=== PATIENT | male | born 1950 | race Caucasian/White ===

== ENCOUNTER 2017-05-31 16:12 | Inpatient (IN) ==
[2017-05-31] MEDS ORDERED: *HR* Heparin 5,000 UNIT/ML VIAL IVP PRN (16:34)
[2017-05-31] MEDS ORDERED: *HR* Heparin 5,000 UNIT/ML VIAL IVP ONE (16:34)
[2017-05-31 16:56] LABS: Basophils % 0.5 %; Eosinophils # 0.1 K/mcL (0.0-0.6); Eosinophils % 1.7 %; Hematocrit 46.5 % (37.5-50.1); Hemoglobin 15.3 g/dL (12.9-16.9); Immature Granulocytes % 0.4 % (0-4); Lymphocytes # 2.9 K/mcL (0.6-4.6); Lymphocytes % 35.2 %; Mean Corpuscular HGB Conc 32.9 g/dL (31.6-35.5); Mean Corpuscular Hemoglobin 29.9 pg (28.0-33.3); Mean Corpuscular Volume 90.8 fL (83.0-100.0); Mean Platelet Volume 9.4 fL (9.4-12.4); Monocytes # 0.6 K/mcL (0.0-1.3); Monocytes % 7.3 %; Neutrophils # 4.5 K/mcL (1.6-8.9); Platelet Count 243 K/mcL (140-400); Red Blood Count 5.12 M/mcL (4.19-5.50); Red Cell Distribution Width 13.6 % (11.5-14.5); Segmented Neutrophils % 54.9 %
--- NOTE | 2017-05-31 16:58 | Emergency Department Note ---
Disposition Clinical Impression: Pulmonary embolism Disposition: Admitted As Inpatient Condition: Good Referrals: Heather Kay MD [Primary Care Provider] - Forms: ED Satisfaction Letter Time of Disposition: 19:28 [facility]B [facility] - General Chief Complaint: ED Shortness of Breath/Dyspnea Stated Complaint: PE Time Seen by Provider: 05/31/17 16:19 Source: patient Mode of arrival: ambulatory Limitations: no limitations Nursing Notes Reviewed: Yes Vital Signs Reviewed: Yes - History of Present Illness Patient presenting from outpatient CAT scan for bilateral PE. 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 He said exertional dyspnea and shortness of breath at rest for the last 2 weeks. It is progressively worsening. Had an outpatient CT scan today that showed a large PE. Patient sent over for further evaluation and management. No fever or chills, chest pain , abdominal pain, vomiting or diarrhea. - Related Data Home Medications Medication Instructions Recorded Confirmed Azithromycin [Azithromycin] 05/31/17 Gabapentin [Neurontin] 600 mg PO BID 05/31/17 05/31/17 predniSONE [PredniSONE] 05/31/17 Allergies Allergy/AdvReac Type Severity Reaction Status Date / Time No Known Allergies Allergy Verified 05/31/17 18:40 Review of Systems: As reviewed in the HPI. All other systems reviewed are negative or normal. Past Medical History - Past Medical History Attestation: Yes The following information was validated with the patient. Source: patient Medical history: Reports: no medical history Psychiatric history: Reports: no psych history - Social History Smoking Status: Never smoker Smokeless Tobacco Status: No Alcohol use: Reports: none Drug use: Reports: none Physical Exam - General Limitations: no limitations General appearance: alert, in no apparent distress - Head Head exam: atraumatic, normocephalic, normal inspection - Eye Eye exam: Present: normal appearance, PERRL, EOMI - ENT ENT exam: normal exam, normal oropharynx, mucous membranes moist - Neck Neck exam: Present: normal inspection, full ROM, trachea midline - Chest Chest inspection: Present: normal inspection, symmetric chest wall rise - Respiratory Respiratory exam: Present: normal lung sounds bilaterally - Cardiovascular Cardiovascular exam: Present: regular rate, normal rhythm, normal heart sounds - Abdominal Exam Abdominal exam: Present: soft, Non-Tender. Absent: tenderness, distention, guarding, rebound, rigidity - Extremities Exam Extremities exam: Present: normal inspection, full ROM. Absent: tenderness, pedal edema - Back Exam Back exam: Present: normal inspection, full ROM. Absent: tenderness - Neurological Exam Neurological exam: Present: alert, oriented X3 - Psychiatric Psychiatric exam: Present: normal affect, normal mood - Skin Skin exam: Present: warm, dry, intact, normal color Course Course Narrative: Patient presenting with a PE. Was diagnosed as an outpatient. We will start on heparin. Patient stable currently - Consultations Consultation #1: The hospitalist just now called back. Patient accepted for admission. Time: 19:28 Vital Signs Temperature 96.9 F L 05/31/17 16:24 Pulse Rate 60 05/31/17 16:24 Respiratory Rate 16 05/31/17 16:24 Blood Pressure 140/89 05/31/17 16:24 O2 Sat by Pulse Oximetry 96 05/31/17 16:24 Temperature 96.9 F L 05/31/17 16:24 Pulse Rate 60 05/31/17 16:24 Respiratory Rate 16 05/31/17 18:27 Blood Pressure 124/90 05/31/17 18:27 O2 Sat by Pulse Oximetry 96 05/31/17 18:27 Oxygen Delivery Oxygen Delivery Room Air Shortness of Breath/Dyspnea - Medical Records Medical records reviewed: Yes I reviewed the patient's medical records. - Lab Data Lab results reviewed: Yes I reviewed the patient's lab results. Result diagrams: 05/31/17 16:29 05/31/17 16:29 Lab Results 05/31/17 05/31/17 05/31/17 Range/Units 16:29 16:29 16:29 WBC 8.3 (4.3-11.1) K/mcL RBC 5.12 (4.19-5.50) M/mcL Hgb 15.3 (12.9-16.9) g/dL Hct 46.5 (37.5-50.1) % MCV 90.8 (83.0-100.0) fL MCH 29.9 (28.0-33.3) pg MCHC 32.9 (31.6-35.5) g/dL RDW 13.6 (11.5-14.5) % Plt Count 243 (140-400) K/mcL MPV 9.4 (9.4-12.4) fL Immature Gran % 0.4 (0-4) % Seg Neutrophils % 54.9 % Lymphocytes % 35.2 % Monocytes % 7.3 % Eosinophils % 1.7 % Basophils % 0.5 % Neutrophils # 4.5 (1.6-8.9) K/mcL Lymphocytes # 2.9 (0.6-4.6) K/mcL Monocytes # 0.6 (0.0-1.3) K/mcL Eosinophils # 0.1 (0.0-0.6) K/mcL Basophils # 0.0 (0.0-0.2) K/mcL PT 12.3 H (9.4-12.1) Seconds INR 1.1 APTT 29.9 (26.0-36.0) Seconds Sodium 140 (136-145) mEq/L Potassium 4.0 (3.5-5.1) mEq/L Chloride 107 (98-107) mEq/L Carbon Dioxide 24 (23-29) mEq/L BUN 14 (8-23) mg/dL Creatinine 1.11 (0.70-1.30) mg/dL Est GFR ( Amer) > 60 (> 60) Est GFR (Non-Af Amer) > 60 (> 60) BUN/Creatinine Ratio 13 (6-26) Glucose 94 (70-105) mg/dL Calculated Osmolality 290 (280-300) Calcium 9.3 (8.6-10.3) mg/dL Troponin I < 0.03 (< 0.04) ng/mL B-Natriuretic Peptide (Less than 100) pg/mL 05/31/17 Range/Units 16:50 WBC (4.3-11.1) K/mcL RBC (4.19-5.50) M/mcL Hgb (12.9-16.9) g/dL Hct (37.5-50.1) % MCV (83.0-100.0) fL MCH (28.0-33.3) pg MCHC (31.6-35.5) g/dL RDW (11.5-14.5) % Plt Count (140-400) K/mcL MPV (9.4-12.4) fL Immature Gran % (0-4) % Seg Neutrophils % % Lymphocytes % % Monocytes % % Eosinophils % % Basophils % % Neutrophils # (1.6-8.9) K/mcL Lymphocytes # (0.6-4.6) K/mcL Monocytes # (0.0-1.3) K/mcL Eosinophils # (0.0-0.6) K/mcL Basophils # (0.0-0.2) K/mcL PT (9.4-12.1) Seconds INR APTT (26.0-36.0) Seconds Sodium (136-145) mEq/L Potassium (3.5-5.1) mEq/L Chloride (98-107) mEq/L Carbon Dioxide (23-29) mEq/L BUN (8-23) mg/dL Creatinine (0.70-1.30) mg/dL Est GFR ( Amer) (> 60) Est GFR (Non-Af Amer) (> 60) BUN/Creatinine Ratio (6-26) Glucose (70-105) mg/dL Calculated Osmolality (280-300) Calcium (8.6-10.3) mg/dL Troponin I (< 0.04) ng/mL B-Natriuretic Peptide 141 H (Less than 100) pg/mL - Radiology Data Radiology results reviewed: Yes I reviewed the patient's radiology results. - EKG Data EKG attestation: Yes I reviewed and interpreted this EKG. EKG results narrative: Rate 61, WI interval 175, QRS 94, QTC 439, indeterminate axis, no acute ischemic changes
[2017-05-31 16:59] LABS: INR 1.1; Prothrombin Time 12.3 Seconds (9.4-12.1)
[2017-05-31] MEDS: Heparin 25,000 UNIT/500 ML D5W 25,000 UNIT/500 ML BAG IVC SCH (17:00)
[2017-05-31 17:02] LABS: Activated Partial Thrombo Time 29.9 Seconds (26.0-36.0)
[2017-05-31 17:15] LABS: BUN/Creatinine Ratio 13 (6-26); Blood Urea Nitrogen 14 mg/dL (8-23); Calcium 9.3 mg/dL (8.6-10.3); Carbon Dioxide 24 mEq/L (23-29); Chloride 107 mEq/L (98-107); Glucose 94 mg/dL (70-105); Osmolality,Calculated 290 (280-300); Sodium 140 mEq/L (136-145); Troponin I < 0.03 ng/mL (< 0.04); eGFR For African Americans > 60 (> 60); eGFR For Non-African Americans > 60 (> 60)
--- NOTE | 2017-05-31 17:21 | Emergency Department Note ---
START Narrative - START START: I examined this patient and my medical decision-making was reviewed with the Resident Physician. I agree with the documented findings, disposition and treatment plan as described except to the extent set forth below. Extent 6-year-old male sent from the CAT scan department for extensive pulmonary embolus seen throughout both lung guevara. Patient had a CT scan of the chest done due to increasing dyspnea on exertion as well as a cough and shortness of breath. He does have a history of DVT years and years ago. He denies chest pain. No fevers. No long travels in a car plane. He does not take any blood thinners at this time. Patient will be started on heparin in the emergency room and will be admitted to the hospital. He is hemodynamically stable at this time. He is not tachycardic or hypoxic.
[2017-05-31] MEDS ORDERED: *HR* LORazepam 2 MG/ML VIAL IVP ONE (17:29)
[2017-05-31] MEDS ORDERED: Melatonin 3 MG TABLET PO ONE (22:34)
[2017-05-31] MEDS ORDERED: *HR* HYDROcodone/Acet 5/325 mg TABLET PO PRN (23:01)
[2017-05-31] MEDS ORDERED: Naloxone 0.4 MG/ML INJ IVP PRN (23:01)
[2017-05-31] MEDS ORDERED: Acetaminophen 325 MG TABLET PO PRN (23:01)
--- NOTE | 2017-05-31 23:26 | Internal Med History&Physical ---
<Zuleyka Jung H - Last Filed: 06/01/17 00:51> Date of Encounter: 06/01/17 Time of Encounter: 23:19 Internal Medicine - H&P: HPI Chief complaint: shortness of breath, cough Admitted From: Emergency Dept Plans for Post Hospital Care: Home History of present illness: Mr. Germain is a 66 year old male with past medical history of ANNABELLE, panic disorder, history of DVT and superficial venous thrombosis of the lower extremity, and reported past intracranial hemangioma currently being managed by Dr. Baum in [place]. Mr. Germain presented to [facility] on 05/31/2017 after reporting to an outpatient CTA and being found to have multiple pulmonary emboli within his bilateral lungs. Patient reports a two-week history of shortness of breath worsened by exertion with associated cough during inhalation and fatigue. He denies any chest pain, palpitations, diaphoresis, nausea, or vomiting. He denies any recent diarrhea, melena, hematochezia. He denies any dizziness, lightheadedness, or headaches. He denies orthopnea or lower extremity swelling. Patient does report some mild abdominal pain which he describes as sharp pains around his umbilicus. He did have umbilical hernia surgery repair last March 2016. He attributes his abdominal pain to increased intake of glazed doughnuts. Patient also reports that his right calf is bigger than his left calf and has been so for a year. He denies any edema or erythema or warmth to the area. He denies any history of recent travel or long flights. Patient denies any underlying malignancy. Patient does report a history of a DVT approximately 20 years ago. In 2017, patient had a superficial venous thrombosis in his lower extremity. He denies any history of anticoagulation. Patient does state that he was diagnosed with a hemangioma in his brain in 2012 by MRI by a neurologist in [place]. During that time he was experiencing episodes of increased intracranial pressure. He states his symptoms have since resolved. He reports taking gabapentin secondary to the increased intracranial pressure. He denies any history of seizures or intracranial bleeding. Patient denies any cardiac history. He denies any family history of DVTs or hypercoagulopathy. He does report that both parents are secondary to malignancy. Past Med Surg Social Fam HX - Past Medical History Attestation: Yes The following information was validated with the patient. Source: patient, old records reviewed Medical history: DVT, other (Obstructive sleep apnea) Psychiatric history: panic disorder - Past Surgical History Surgical History: herniorrhaphy (Umbilical hernia), other (Lower extremity vein stripping) - Social History Smoking Status: Never smoker Smokeless Tobacco Status: No Alcohol use: none Drug use: none Occupational status: retired - Family History Father History Unknown: Yes Living Status: Hx Family Cardiac Disorders: Yes (CHF, HI) Hx Family Respiratory Disorders: Yes (PE) Hx Family Cancer: Yes (Pancreatic cancer) Mother Living Status: Hx Family Cardiac Disorders: Yes (HI) Hx Family Cancer: Yes (Colon cancer) Internal Medicine - H&P: Meds Azithromycin [Azithromycin] 250 mg PO PER PKG DI 05/31/17 [History] Gabapentin [Neurontin] 600 mg PO BID 05/31/17 [History] predniSONE [PredniSONE] See Taper PO TAPER 05/31/17 [History] 3 Allergy/AdvReac Type Severity Reaction Status Date / Time No Known Allergies Allergy Verified 05/31/17 18:40 All Systems PM: A 10-system review of systems was performed and is negative for pertinent findings except as documented above in the HPI. - Constitutional Constitutional: fatigue, no anorexia, no chills, no fever(s), no weakness, no weight gain, no weight loss - EENT Eyes: no change in vision, no other visual disturbances Nose, mouth and throat: no nasal congestion, no nasal discharge, no sinus pain, no sinus pressure - Cardiovascular Cardiovascular ROS IM: dyspnea, dyspnea on exertion, no chest pain, no claudication, no diaphoresis, no edema, no irregular heart rhythm, no lightheadedness, no orthopnea, no palpitations, no paroxysmal nocturnal dyspnea , no syncope - Respiratory Respiratory: cough, dyspnea, dyspnea on exertion, pain on inspiration, no hemoptysis, no chest congestion, no excessive phlegm production - Gastrointestinal Gastrointestinal: abdominal pain, no change in stool character, no coffee ground emesis, no constipation, no diarrhea, no heartburn, no hematemesis, no loose stools, no melena, no nausea, no vomiting - Genitourinary Genitourinary ROS male: no difficulty urinating, no dysuria, no hematuria, no urinary frequency, no urinary hesitancy - Musculoskeletal Musculoskeletal ROS IM: no back pain, no joint swelling, no numbness - Integumentary Integumentary IM: no erythema, no rash, no jaundice - Neurological Neurological ROS: no abnormal gait, no abnormal hearing, no focal weakness, no numbness - Endocrine Endocrine IM: no cold intolerance, no heat intolerance - Hematologic/Lymphatic Hematologic/Lymphatic: no easy bleeding, no easy bruising - Constitutional Vitals: Temp Pulse Resp BP Pulse Ox 98.0 F 59 16 135/88 97 05/31/17 21:59 05/31/17 21:59 05/31/17 21:59 05/31/17 21:59 05/31/17 21:59 General appearance: Present: cooperative, A&O X 3, pleasant, no acute distress, answers questions appropriately - Head Head exam: Present: atraumatic, normocephalic - Eye Eye exam: Present: conjuntiva pink, sclera anicteric - Neck Neck exam general surgery: Present: supple, trachea midline. Absent: lymphadenopathy - Respiratory Respiratory exam: Present: CTAB. Absent: accessory muscle use, rales, rhonchi, wheezes - Cardiovascular Cardiovascular exam: Present: RRR, +S1, +S2. Absent: diastolic murmur, gallop, rubs, systolic murmur - GI/Abdominal GI/Abdominal exam: Present: normal bowel sounds, soft, no peritoneal signs. Absent: distended, firm, guarding, tenderness - Extremities Exam Extremities exam: Present: warm, radial pulses palpable and symmetrical. Absent : calf tenderness, cyanotic, pedal edema - Neurological Exam Neurological exam: Present: CN II-XII intact, oriented X3, no focal deficits. Absent: pronater drift, facial droop, speech deficit - Psychiatric Psychiatric exam: Present: normal affect, normal mood - Skin Skin exam: Present: dry, intact, warm Internal Med - H&P Results - Labs CBC & Chem 7: 05/31/17 16:29 05/31/17 16:29 - Assessment and plan (1) Pulmonary embolism Current Visit: Yes Status: Acute Assessment and plan: 66-year-old male with past medical history of recurrent thrombotic events presents with acute extensive pulmonary emboli involving the central, segmental , and subsegmental branches of the pulmonary tree bilaterally. No evidence for right heart strain on CT scan although main pulmonary artery is dilated. -Patient hemodynamically stable and resting comfortably. -We will continue heparin drip. -Consult to heme/onc for long-term anticoagulation recommendations as well as hypercoagulopathy workup. -We will order hypercoagulopathy panel. -We will get an echocardiogram in the a.m. as BNP is elevated to rule out right ventricular strain. -We will get bilateral lower extremity Dopplers. Qualifiers: Pulmonary embolism type: other Chronicity: acute Acute cor pulmonale presence: without acute cor pulmonale Qualified Code(s): I26.99 - Other pulmonary embolism without acute cor pulmonale (2) Hemangioma Current Visit: Yes Status: Acute Assessment and plan: Patient does have reported history of an intracranial hemangioma as evidenced by MRI after complaints of increased intracranial pressure in approximately 2012. Explained to patient that this could be a potential contraindication for anticoagulation. Patient states he understands the risks and understands that the benefits for anticoagulation with heparin for his acute PEs outweigh the risks. (3) Abdominal pain Current Visit: Yes Status: Acute Assessment and plan: Patient reports a 2 week history of periumbilical sharp, mild umbilical pain. -Likely related to umbilical hernia surgery repair a year ago. -We will continue to monitor. Qualifiers: Abdominal location: periumbilical Qualified Code(s): R10.33 - Periumbilical pain (4) DVT prophylaxis Current Visit: Yes Status: Acute Assessment and plan: Patient on heparin drip. - Time Spent With Patient Total time spent is greater than 50% in coordination of care (as documented) at patient's floor/unit and/or counseling patient: <Karla Stanton - Last Filed: 06/01/17 06:03> Date of Encounter: 06/01/17 Internal Medicine - H&P: HPI History of present illness: Mr. Germain is a 66 year old male All Systems PM: A 10-system review of systems was performed and is negative for pertinent findings except as documented above in the HPI. - Constitutional Vitals: Temp Pulse Resp BP Pulse Ox 97.5 F L 50 16 117/73 94 06/01/17 05:37 06/01/17 05:37 06/01/17 05:37 06/01/17 05:37 06/01/17 05:37 Internal Med - H&P Results - Labs CBC & Chem 7: 05/31/17 16:29 04/25/18 16:29 Labs: Cardiac Enzymes 06/01/17 Range/Units 00:13 Troponin I < 0.03 (< 0.04) ng/mL - Attending Attestation I have seen and examined this patient independently. I have discussed with resident physician Dr. Wilson regarding the management plan. Agree with the documentation. - Assessment and plan (1) Pulmonary embolism Current Visit: Yes Status: Acute Qualifiers: Pulmonary embolism type: other Chronicity: acute Acute cor pulmonale presence: without acute cor pulmonale Qualified Code(s): I26.99 - Other pulmonary embolism without acute cor pulmonale (2) Hemangioma Current Visit: Yes Status: Acute (3) Abdominal pain Current Visit: Yes Status: Acute Qualifiers: Abdominal location: periumbilical Qualified Code(s): R10.33 - Periumbilical pain (4) DVT prophylaxis Current Visit: Yes Status: Acute - Time Spent With Patient Total time spent is greater than 50% in coordination of care (as documented) at patient's floor/unit and/or counseling patient:
[2017-05-31] MEDS: Gabapentin 300 MG CAPSULE PO SCH (23:54)
[2017-06-01 00:50] LABS: Heparin anti-factor XA UFH 0.56 IU/mL (0.30-0.70)
[2017-06-01 06:11] LABS: Basophils % 0.6 %; Eosinophils # 0.2 K/mcL (0.0-0.6); Eosinophils % 3.1 %; Hematocrit 41.7 % (37.5-50.1); Immature Granulocytes % 0.3 % (0-4); Lymphocytes # 3.1 K/mcL (0.6-4.6); Lymphocytes % 45.6 %; Mean Corpuscular HGB Conc 33.6 g/dL (31.6-35.5); Mean Corpuscular Hemoglobin 30.3 pg (28.0-33.3); Mean Corpuscular Volume 90.3 fL (83.0-100.0); Mean Platelet Volume 9.2 fL (9.4-12.4); Monocytes # 0.6 K/mcL (0.0-1.3); Monocytes % 8.9 %; Neutrophils # 2.9 K/mcL (1.6-8.9); Platelet Count 204 K/mcL (140-400); Red Blood Count 4.62 M/mcL (4.19-5.50); Red Cell Distribution Width 13.7 % (11.5-14.5); Segmented Neutrophils % 41.5 %
[2017-06-01 06:33] LABS: Alanine Aminotransferase 15 Units/L (7-52); Albumin 3.6 g/dL (3.5-5.7); Albumin/Globulin Ratio 1.5 (1.1-2.2); Alkaline Phosphatase 96 Units/L (34-104); Aspartate Amino Transferase 16 Units/L (13-39); BUN/Creatinine Ratio 14 (6-26); Bilirubin,Total 0.7 mg/dL (0.3-1.0); Blood Urea Nitrogen 14 mg/dL (8-23); Calcium 8.9 mg/dL (8.6-10.3); Carbon Dioxide 24 mEq/L (23-29); Chloride 109 mEq/L (98-107); Globulin 2.4 g/dL (2.4-3.5); Glucose 98 mg/dL (70-105); Magnesium 2.1 mg/dL (1.6-2.6); Osmolality,Calculated 290 (280-300); Phosphorous 4.4 mg/dL (2.7-4.5); Potassium 3.9 mEq/L (3.5-5.1); Sodium 140 mEq/L (136-145); eGFR For African Americans > 60 (> 60); eGFR For Non-African Americans > 60 (> 60)
[2017-06-01] MEDS: Gabapentin 300 MG CAPSULE PO SCH ×2 (09:55→21:37)
[2017-06-01] MEDS: Heparin 25,000 UNIT/500 ML D5W 25,000 UNIT/500 ML BAG IVC SCH (10:06)
--- NOTE | 2017-06-01 10:56 | Oncology Inp Consult Note ---
<Sarah Joseph L - Last Filed: 06/01/17 15:07> Date of Encounter: 06/01/17 Time of Encounter: 10:56 Assessment and Plan (1) Pulmonary embolism Status: Acute Assessment and plan: CTA reveals Extensive pulmonary emboli involving central, segmental, and subsegmental branches bilaterally. While there is no convincing evidence for right heart strain, the main pulmonary artery is dilated. No evidence of pulmonary infarction. Echo-pending Troponin <0.03 Now requiring O2-continue to monitor and attempt to wean prior to discharge if possible. Symptoms of SOB and cough with inspiration-stable. HR and BP stable. Thrombophilia work up ordered per primary service Currently on heparin gtt. Recommendation to transition to Eliquis 10 mg twice daily for 7 days followed by 5 mg twice daily-initiation per hospitalist team. tax services manager consult ordered for insurance coverage information. Duration of AC- for at least 3-6 months, to be determined per Dr. Matos. This is the patients first unprovoked PE, history of unprovoked SVT and provoked DVT as described in HPI. Patient will have follow up arranged with Dr. Matos following discharge. Qualifiers: Pulmonary embolism type: other Chronicity: acute Acute cor pulmonale presence: without acute cor pulmonale Qualified Code(s): I26.99 - Other pulmonary embolism without acute cor pulmonale (2) Hemangioma Status: Acute Assessment and plan: Obtaining records from Dr. Lo with [facility]-patients neurologist, along with recent Brain MRI report. Discussed case with [facility], stable hemangioma not a contraindication to AC. I did notify Dr. Wally Cortes's medical device assembler with an update on patients PE and AC initiation. Please refer to Dr. Matos's attestation below for additional details - Data of Consult Patient: new to practice Consult date: 06/01/17 Requesting Physician: Juancarlos Govea Primary Care Provider: Heather Oviedo-Simeon - Consult Narrative Reason for consult: Acute PE History of present illness: Mr. Germain is a 66 year old male with past medical history significant for ANNABELLE, panic disorder, history of DVT and superficial venous thrombosis of the lower extremity, and reported past intracranial hemangioma currently being managed by Dr.William Lo with [facility]. He was admitted on 05/31/2017 following CTA ordered by his PCP for symptoms of increased and worsening SOB, fatigue and cough with inspiration. CTA revealed extensive PE involving central, segmental, and subsegmental branches bilaterally. While there is no convincing evidence for right heart strain, the main pulmonary artery is dilated. No evidence of pulmonary infarction. He is currently on a heparin gtt. He does have a history of LE DVT about 20 years ago [place] He also reports having an SVT in August of last year which appears to have been unprovoked. He denies any recent long distance travel, hospitalization or procedures prior to his symptoms related to current PE. He is a non-smoker, BMI 29.5. Denies history of cancer. He does relate a history of intracranial hemangioma which was diagnosed in 2012. He denies history of IC bleeding or seizures. He reports he has had annual MRI's which have been stable. He does report history of headaches which are worse when bending over, for which his neurologist has prescribed amitriptyline, nortriptyline and most recently gabapentin. He has had relief of these symptoms since February while on gabapentin. He has a follow up arranged with Dr. Donaldson end of June. Past Med Surg Social Fam HX - Past Medical History Medical history: DVT, other (Obstructive sleep apnea) Psychiatric history: panic disorder - Past Surgical History Surgical History: herniorrhaphy (Umbilical hernia), other (Lower extremity vein stripping) - Social History Smoking Status: Never smoker Smokeless Tobacco Status: No Alcohol use: none Drug use: none - Family History Father History Unknown: Yes Living Status: Hx Family Cardiac Disorders: Yes (CHF, [place]) Hx Family Respiratory Disorders: Yes (PE) Hx Family Cancer: Yes (Pancreatic cancer) Mother Living Status: Hx Family Cardiac Disorders: Yes ([place]) Hx Family Cancer: Yes (Colon cancer) Medications and Allergies Azithromycin [Azithromycin] 250 mg PO PER PKG DI 05/31/17 [History] Gabapentin [Neurontin] 600 mg PO BID 05/31/17 [History] predniSONE [PredniSONE] See Taper PO TAPER 05/31/17 [History] 3 Allergy/AdvReac Type Severity Reaction Status Date / Time No Known Allergies Allergy Verified 05/31/17 18:40 Constitutional: Present: fatigue, weakness. Absent: anorexia, chills, fever(s) , weight loss Eyes: Absent: change in vision Nose, mouth and throat: Absent: dysphagia Cardiovascular: Absent: chest pain, irregular heart rhythm Respiratory: Present: cough, dyspnea Additional comments: cough with inspiration Gastrointestinal: Absent: abdominal pain, heartburn, hematemesis, hematochezia, melena, nausea, vomiting Additional comments: denies dysuria or hematuria Musculoskeletal: Present: muscle weakness Integumentary: Absent: wounds Neurological: Present: as per HPI. Absent: focal weakness, frequent falls, headache(s) Psychiatric: Present: as per HPI Hematologic/Lymphatic: Present: as per HPI Oncology - Exam - Constitutional Vitals: Temp Pulse Resp BP Pulse Ox 97.8 F 74 16 113/82 96 06/01/17 07:27 06/01/17 07:27 06/01/17 07:27 06/01/17 07:27 06/01/17 07:27 General appearance: cooperative, no acute distress, no febrile - Head Head exam: Present: atraumatic - Respiratory Respiratory exam: Present: CTAB. Absent: respiratory distress - Cardiovascular Cardiovascular exam: Present: RRR, +S1, +S2 - GI/Abdominal GI/Abdominal exam: Present: normal bowel sounds, soft. Absent: tenderness - Extremities Exam Extremities exam: Absent: calf tenderness Additional comments: mild edema to RLE-patient states this is chronic and unchanged - Neurological Exam Neurological exam: Present: alert, oriented X3, no focal deficits, strengths equal and symetr throughout - Psychiatric Psychiatric exam: Present: normal affect, normal mood - Skin Skin exam: Present: dry, intact, normal color, warm Oncology - Results Labs: Short CBC 06/01/17 Range/Units 05:51 WBC 6.9 (4.3-11.1) K/mcL Hgb 14.0 (12.9-16.9) g/dL Hct 41.7 (37.5-50.1) % Plt Count 204 (140-400) K/mcL Neutrophils # 2.9 (1.6-8.9) K/mcL BMP 06/01/17 05:51 Sodium 140 Potassium 3.9 Chloride 109 H Carbon Dioxide 24 BUN 14 Creatinine 1.00 Glucose 98 Calcium 8.9 Cardiac Enzymes 06/01/17 Range/Units 05:51 Troponin I < 0.03 (< 0.04) ng/mL Liver Function 06/01/17 Range/Units 05:51 Total Bilirubin 0.7 (0.3-1.0) mg/dL AST 16 (13-39) Units/L ALT 15 (7-52) Units/L Alkaline Phosphatase 96 (34-104) Units/L Albumin 3.6 (3.5-5.7) g/dL Consult Discharge Plan - Plan Referrals: Heather Kay MD [Primary Care Provider] - <Jayjay Yuen - Last Filed: 06/01/17 19:20> Date of Encounter: 06/01/17 - Data of Consult Requesting Physician: Juancarlos Govea Primary Care Provider: Heather Meyers - Consult Narrative History of present illness: Anticoagulation for ac PE d/w patient, 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 Short/tank terminal gauger risk benefits reviewed with hx hemangioma. REcords awaited from [facility]. PAtient is agreeable for Eliquis twice daily 5mg for ac PE for outpatient treatment and close follow up with neurology and heme. I examined this patient and my medical decision-making was reviewed with the Advanced Practice Nurse, Sarah Joseph. I agree with the documented findings, disposition and treatment plan as described except to the extent set forth below. Oncology - Exam - Constitutional Vitals: Temp Pulse Resp BP Pulse Ox 97.5 F L 55 18 111/65 96 06/01/17 16:00 06/01/17 16:00 06/01/17 16:00 06/01/17 16:00 06/01/17 16:00 Oncology - Results Labs: Short CBC 06/01/17 Range/Units 05:51 WBC 6.9 (4.3-11.1) K/mcL Hgb 14.0 (12.9-16.9) g/dL Hct 41.7 (37.5-50.1) % Plt Count 204 (140-400) K/mcL Neutrophils # 2.9 (1.6-8.9) K/mcL BMP 06/01/17 05:51 Sodium 140 Potassium 3.9 Chloride 109 H Carbon Dioxide 24 BUN 14 Creatinine 1.00 Glucose 98 Calcium 8.9 Cardiac Enzymes 06/01/17 06/01/17 Range/Units 05:51 12:06 Troponin I < 0.03 < 0.03 (< 0.04) ng/mL Liver Function 06/01/17 Range/Units 05:51 Total Bilirubin 0.7 (0.3-1.0) mg/dL AST 16 (13-39) Units/L ALT 15 (7-52) Units/L Alkaline Phosphatase 96 (34-104) Units/L Albumin 3.6 (3.5-5.7) g/dL
[2017-06-01] MEDS: Cetirizine HCl 5 MG/5 ML UDC PO SCH (15:26)
--- NOTE | 2017-06-01 19:31 | Internal Med Progress Note ---
Date of Encounter: 06/01/17 Time of Encounter: 11:00 - Assessment and plan (1) Pulmonary embolism Current Visit: Yes Status: Acute Assessment and plan: Patient found to have acute extensive pulmonary emboli involving the central, segmental, and subsegmental branches of the pulmonary tree bilaterally. No evidence for right heart strain on CT scan although main pulmonary artery is dilated. Patient hemodynamically stable and resting comfortably. Will continue heparin drip. Heme/onc consult with recommendations for for long-term anticoagulation Qualifiers: Pulmonary embolism type: other Chronicity: acute Acute cor pulmonale presence: without acute cor pulmonale Qualified Code(s): I26.99 - Other pulmonary embolism without acute cor pulmonale (2) Hemangioma Current Visit: Yes Status: Acute Assessment and plan: Dismantler oncologist discussed with patient's neurologist Dr. Randle at [facility] in addition to [facility] neurologist Dr. Delagdillo There is no contraindication of OAC for patient's stable hemangioma (3) Abdominal pain Current Visit: Yes Status: Acute Assessment and plan: Patient reports a 2 week history of periumbilical sharp, mild umbilical pain. -Likely related to umbilical hernia surgery repair a year ago. -We will continue to monitor. Qualifiers: Abdominal location: periumbilical Qualified Code(s): R10.33 - Periumbilical pain (4) DVT prophylaxis Current Visit: Yes Status: Acute Assessment and plan: Patient on heparin drip. - Time Spent With Patient Total time spent is greater than 50% in coordination of care (as documented) at patient's floor/unit and/or counseling patient: - Subjective Interval history: Patient without any respiratory distress hemodynamically stable after found to have pulmonary embolism - Constitutional Vitals: Temp Pulse Resp BP Pulse Ox 97.5 F L 55 18 111/65 96 06/01/17 16:00 06/01/17 16:00 06/01/17 16:00 06/01/17 16:00 06/01/17 16:00 General appearance: Present: cooperative, A&O X 3, pleasant, no acute distress, answers questions appropriately - Respiratory Respiratory exam: Present: CTAB. Absent: accessory muscle use, rales, rhonchi, wheezes - Cardiovascular Cardiovascular exam: Present: RRR, +S1, +S2. Absent: diastolic murmur, gallop, rubs, systolic murmur Internal Medicine: Result - Labs CBC & Chem 7: 06/01/17 05:51 06/01/17 05:51 Labs: Short CBC 06/01/17 Range/Units 05:51 WBC 6.9 (4.3-11.1) K/mcL Hgb 14.0 (12.9-16.9) g/dL Hct 41.7 (37.5-50.1) % Plt Count 204 (140-400) K/mcL Neutrophils # 2.9 (1.6-8.9) K/mcL BMP 06/01/17 05:51 Sodium 140 Potassium 3.9 Chloride 109 H Carbon Dioxide 24 BUN 14 Creatinine 1.00 Glucose 98 Calcium 8.9 Cardiac Enzymes 06/01/17 06/01/17 Range/Units 05:51 12:06 Troponin I < 0.03 < 0.03 (< 0.04) ng/mL Liver Function 06/01/17 Range/Units 05:51 Total Bilirubin 0.7 (0.3-1.0) mg/dL AST 16 (13-39) Units/L ALT 15 (7-52) Units/L Alkaline Phosphatase 96 (34-104) Units/L Albumin 3.6 (3.5-5.7) g/dL - ABG Interpretation ABG results: PT/INR, D-dimer PT 12.3 Seconds (9.4-12.1) H 05/31/17 16:29 Consult Discharge Plan - Plan Referrals: Heather Kay MD [Primary Care Provider] -
[2017-06-01] MEDS ORDERED: Melatonin 3 MG TABLET PO ONE (23:42)
[2017-06-02] MEDS: *HR* Heparin 5,000 UNIT/ML VIAL IVP PRN ×2 (02:56→16:10)
[2017-06-02] MEDS: Heparin 25,000 UNIT/500 ML D5W 25,000 UNIT/500 ML BAG IVC SCH (06:17)
[2017-06-02] MEDS: Cetirizine HCl 5 MG/5 ML UDC PO SCH (08:30)
[2017-06-02] MEDS: Gabapentin 300 MG CAPSULE PO SCH ×2 (08:30→21:26)
[2017-06-02 09:03] LABS: Plt Function ADP Closure TIME 74 Seconds (57-162); Plt Function Epi Closure Time 80 Seconds (74-171)
[2017-06-02 09:06] LABS: Activated Partial Thrombo Time 140.5 Seconds (26.0-36.0)
[2017-06-02 09:11] LABS: Heparin anti-factor XA UFH 0.81 IU/mL (0.30-0.70)
--- NOTE | 2017-06-02 11:03 | Oncology Inp Progress Note ---
<Sarah Wang - Last Filed: 06/02/17 17:42> Date of Encounter: 06/02/17 Time of Encounter: 10:45 (1) Pulmonary embolism Current Visit: Yes Status: Acute Assessment and plan: CTA reveals Extensive pulmonary emboli involving central, segmental, and subsegmental branches bilaterally. While there is no convincing evidence for right heart strain, the main pulmonary artery is dilated. No evidence of pulmonary infarction. Echo-LVEF 60-65%, normal right ventricular structure and function Troponin <0.03 Symptoms of SOB and cough with inspiration-stable. Thrombophilia work up ordered per primary service. Currently on heparin gtt. Recommendation to transition to Eliquis 5 mg twice daily-initiation per hospitalist team. Patient understands that bleeding is main risk with AC medications and understands s/s to report or go to ER for. Kidney function normal at this time, continue to monitor Duration of AC- for at least 6 months, however given history further discussion may be needed with patient/Dr. Matos for indefinite AC-to be determined per Dr. Matos on outpatient basis. This is the patients first unprovoked PE, history of unprovoked SVT and provoked DVT as described in HPI. He is scheduled for a colonoscopy in June-recommended he delay screening colonoscopy at least 3 months in setting of acute PE as we would not recommend cessation of his AC for this screening procedure. He is requesting referral to [facility] for screening colonoscopy-Dr. Matos's team may help to arrange at upcoming f/u Patient was given an appointment card for a follow up with Dr. Matos at our visit today. Qualifiers: Pulmonary embolism type: other Chronicity: acute Acute cor pulmonale presence: without acute cor pulmonale Qualified Code(s): I26.99 - Other pulmonary embolism without acute cor pulmonale (2) Hemangioma Current Visit: Yes Status: Acute Assessment and plan: Obtaining records from Dr. Lo with [facility]-patients neurologist, along with recent Brain MRI report. Discussed case with Dr. Delgadillo, [facility], stable hemangioma not a contraindication to AC. I did notify Dr. Wally Cortes's medical and scientific illustrator, with an update on patients PE and AC initiation. Received phone call today that message was relayed. Please refer to Dr. Ventura's attestation below for additional details Oncology: Subj Interval history: Mr. Germain is resting in bed. Respiratory symptoms are stable. He denies chest pain or SOB at rest. Continues to experience persistent coughing with inhalation. Continues to require oxygen per nasal cannula. He is wishing to ambulate as he has not been out of bed, encouraged activity as tolerated with assistance of nursing staff. - Constitutional Vitals: Vital Signs Temp Pulse Resp BP Pulse Ox 06/02/17 10:59 97.5 F L 62 17 124/89 91 06/02/17 07:17 97.5 F L 51 17 104/68 96 06/02/17 03:50 97.5 F L 49 13 110/64 97 06/01/17 23:19 97.5 F L 57 15 147/88 94 06/01/17 20:15 97.8 F 57 14 119/74 98 06/01/17 16:00 97.5 F L 55 18 111/65 96 06/01/17 11:31 97.7 F 58 18 114/81 96 Intake and Output 06/01/17 06/02/17 06/02/17 23:59 07:59 15:59 Intake Total 240 / 240 260 / 260 63.5 / 63.5 Output Total 200 / 200 Balance 40 / 40 260 / 260 63.5 / 63.5 Intake: IV Fluids 60 / 60 63.5 / 63.5 Heparin 25,000 UNIT/500 ML D5W 60 / 60 63.5 / 63.5 25,000 unit In 500 ml @ 14 UNIT /KG/HR 27.789 mls/hr IVC .Q18H OMAR Rx#:[id number] Oral 240 / 240 200 / 200 Output: Urine 200 / 200 Other: Weight 103.1 kg Patient Weight 06/02/17 23:59 Weight 103.1 kg General appearance: cooperative, no acute distress, no febrile - Head Head exam: Present: atraumatic - ENT ENT exam: Present: mucous membranes moist - Respiratory Respiratory exam: Present: CTAB. Absent: respiratory distress - Cardiovascular Cardiovascular exam: Present: RRR, +S1, +S2 - GI/Abdominal GI/Abdominal exam: Present: normal bowel sounds, soft. Absent: tenderness - Extremities Exam Extremities exam: Present: normal inspection. Absent: calf tenderness - Neurological Exam Neurological exam: Present: alert, oriented X3, no focal deficits, strengths equal and symetr throughout - Psychiatric Psychiatric exam: Present: normal affect, normal mood - Skin Skin exam: Present: dry, intact, normal color, warm Oncology: Obj Data - Labs CBC & Chem 7: 06/02/17 10:48 06/02/17 10:48 Labs: Laboratory Results - last 24 hr 06/01/17 06/01/17 06/01/17 12:06 12:06 12:06 APTT 61.1 H Plt Func Collagen/Epi 80 Plt Func Collagen/ADP 74 Heparin Anti-Xa, Unfract Troponin I < 0.03 06/01/17 06/02/17 06/02/17 18:42 00:48 08:25 APTT 60.2 H 55.5 H 140.5 H* D Plt Func Collagen/Epi Plt Func Collagen/ADP Heparin Anti-Xa, Unfract 0.81 H Troponin I - ABG Interpretation ABG results: PT/INR, D-dimer PT 12.3 Seconds (9.4-12.1) H 05/31/17 16:29 Consult Discharge Plan - Plan Referrals: Heather Kay MD [Primary Care Provider] - 06/13/17 11:45 am (Dr. Oviedo has switch to [facility]. The phone number is [phone]. The office is located at [address] [place] [address]. ) <Rigo Ventura S - Last Filed: 06/02/17 21:33> Date of Encounter: 06/02/17 - Constitutional Vitals: Vital Signs Temp Pulse Resp BP Pulse Ox 06/02/17 20:55 97.8 F 63 14 129/77 96 06/02/17 15:38 97.6 F 57 17 111/62 96 06/02/17 11:59 96 06/02/17 10:59 97.5 F L 62 17 124/89 91 06/02/17 07:17 97.5 F L 51 17 104/68 96 06/02/17 03:50 97.5 F L 49 13 110/64 97 06/01/17 23:19 97.5 F L 57 15 147/88 94 Intake and Output 06/02/17 06/02/17 06/03/17 08:59 16:59 00:59 Intake Total 260 / 260 187.5 / 187.5 400 / 400 Output Total 750 / 750 500 / 500 Balance 260 / 260 -562.5 / -562.5 -100 / -100 Intake: IV Fluids 60 / 60 187.5 / 187.5 Heparin 25,000 UNIT/500 ML D5W 60 / 60 187.5 / 187.5 25,000 unit In 500 ml @ 14 UNIT /KG/HR 27.789 mls/hr IVC .Q18H OMAR Rx#:[id number] Oral 200 / 200 400 / 400 Output: Urine 750 / 750 500 / 500 Other: Weight 103.1 kg Patient Weight 06/03/17 00:59 Weight 103.1 kg Oncology: Obj Data - Labs CBC & Chem 7: 06/02/17 10:48 06/02/17 10:48 Labs: Laboratory Results - last 24 hr 06/01/17 06/02/17 06/02/17 12:06 00:48 08:25 WBC RBC Hgb Hct MCV MCH MCHC RDW Plt Count MPV Immature Gran % Seg Neutrophils % Lymphocytes % Monocytes % Eosinophils % Basophils % Neutrophils # Lymphocytes # Monocytes # Eosinophils # Basophils # APTT 55.5 H 140.5 H* D Plt Func Collagen/Epi 80 Plt Func Collagen/ADP 74 Heparin Anti-Xa, Unfract 0.81 H Sodium Potassium Chloride Carbon Dioxide BUN Creatinine Est GFR ( Amer) Est GFR (Non-Af Amer) BUN/Creatinine Ratio Glucose Calculated Osmolality Calcium 06/02/17 06/02/17 06/02/17 10:48 10:48 15:24 WBC 5.1 RBC 4.89 Hgb 15.0 Hct 44.4 MCV 90.8 MCH 30.7 MCHC 33.8 RDW 13.5 Plt Count 211 MPV 9.0 L Immature Gran % 0.4 Seg Neutrophils % 59.3 Lymphocytes % 27.8 Monocytes % 9.2 Eosinophils % 2.5 Basophils % 0.8 Neutrophils # 3.0 Lymphocytes # 1.4 Monocytes # 0.5 Eosinophils # 0.1 Basophils # 0.0 APTT 45.5 H D Plt Func Collagen/Epi Plt Func Collagen/ADP Heparin Anti-Xa, Unfract Sodium 140 Potassium 4.2 Chloride 106 Carbon Dioxide 27 BUN 16 Creatinine 1.16 Est GFR ( Amer) > 60 Est GFR (Non-Af Amer) > 60 BUN/Creatinine Ratio 14 Glucose 98 Calculated Osmolality 291 Calcium 9.3 - Impressions Impressions Cervical Spine X-Ray 06/02/17 11:14 IMPRESSION: Chronic degenerative changes predominantly at C5-6 D/ / Jann Kuhn MD / Jann Kuhn MD Interpreting Provider: Jann Kuhn MD - ABG Interpretation ABG results: PT/INR, D-dimer PT 12.3 Seconds (9.4-12.1) H 05/31/17 16:29 - Attending Attestation I examined this patient and my medical decision-making was reviewed with the Advanced Practice Nurse. I agree with the documented findings, disposition and treatment plan as described except to the extent set forth below. He is doing better. He has weaned off oxygen. May transition to eliquis 5 mg bid at time of d/c. Recommended he delay colonoscopy until completion of 3 months anticoagulation. Also discussed duration of therapy. As he is a male with an unprovoked event, his lifetime risk of recurrence is about 50%. My preference is for an indefinite course of anticoaguation or transition to prophylactic dosing after 6 months. It is unlikely thrombophilia testing will impact this decision making. We will sign off. Please call with questions. I spent 45 minutes caring for this patient with >50% time counseling and coordinating care.
[2017-06-02 11:10] LABS: Basophils % 0.8 %; Eosinophils # 0.1 K/mcL (0.0-0.6); Eosinophils % 2.5 %; Hematocrit 44.4 % (37.5-50.1); Immature Granulocytes % 0.4 % (0-4); Lymphocytes # 1.4 K/mcL (0.6-4.6); Lymphocytes % 27.8 %; Mean Corpuscular HGB Conc 33.8 g/dL (31.6-35.5); Mean Corpuscular Hemoglobin 30.7 pg (28.0-33.3); Mean Corpuscular Volume 90.8 fL (83.0-100.0); Monocytes # 0.5 K/mcL (0.0-1.3); Monocytes % 9.2 %; Platelet Count 211 K/mcL (140-400); Red Blood Count 4.89 M/mcL (4.19-5.50); Red Cell Distribution Width 13.5 % (11.5-14.5); Segmented Neutrophils % 59.3 %
[2017-06-02 11:22] LABS: BUN/Creatinine Ratio 14 (6-26); Blood Urea Nitrogen 16 mg/dL (8-23); Calcium 9.3 mg/dL (8.6-10.3); Carbon Dioxide 27 mEq/L (23-29); Chloride 106 mEq/L (98-107); Glucose 98 mg/dL (70-105); Osmolality,Calculated 291 (280-300); Potassium 4.2 mEq/L (3.5-5.1); Sodium 140 mEq/L (136-145); eGFR For African Americans > 60 (> 60); eGFR For Non-African Americans > 60 (> 60)
--- NOTE | 2017-06-02 17:48 | Internal Med Progress Note ---
Date of Encounter: 06/02/17 Time of Encounter: 11:00 - Assessment and plan (1) Pulmonary embolism Current Visit: Yes Status: Acute Assessment and plan: Patient found to have acute extensive pulmonary emboli involving the central, segmental, and subsegmental branches of the pulmonary tree bilaterally. No evidence for right heart strain on CT scan although main pulmonary artery is dilated. Patient remains hemodynamically stable and resting comfortably. He is still requiring supplemental oxygenation this morning however Plans to DC heparin drip this evening and start patient on Eliquis Qualifiers: Qualified Code(s): I26.99 - Other pulmonary embolism without acute cor pulmonale (2) Abdominal pain Current Visit: Yes Status: Acute Assessment and plan: Resolved; continue to monitor Qualifiers: Qualified Code(s): R10.33 - Periumbilical pain (3) Hemangioma Current Visit: Yes Status: Acute Assessment and plan: Pharmacy Resource Tech oncologist discussed with patient's neurologist Dr. Randle at [facility] in addition to [facility] neurologist Dr. Delgadillo There is no contraindication of OAC for patient's stable hemangioma (4) DVT prophylaxis Current Visit: Yes Status: Acute Assessment and plan: Patient will be on Eliquis - Time Spent With Patient Total time spent is greater than 50% in coordination of care (as documented) at patient's floor/unit and/or counseling patient: - Subjective Interval history: Patient still requiring supplemental oxygenation this morning Plans to DC heparin drip and start patient on Eliquis this evening - Constitutional Vitals: Temp Pulse Resp BP Pulse Ox 97.6 F 57 17 111/62 96 06/02/17 15:38 06/02/17 15:38 06/02/17 15:38 06/02/17 15:38 06/02/17 15:38 General appearance: Present: cooperative, A&O X 3, pleasant, no acute distress, answers questions appropriately - Respiratory Respiratory exam: Present: CTAB. Absent: accessory muscle use, rales, rhonchi, wheezes - Cardiovascular Cardiovascular exam: Present: RRR, +S1, +S2. Absent: diastolic murmur, gallop, rubs, systolic murmur Internal Medicine: Result - Labs CBC & Chem 7: 06/02/17 10:48 06/02/17 10:48 Labs: Short CBC 06/02/17 Range/Units 10:48 WBC 5.1 (4.3-11.1) K/mcL Hgb 15.0 (12.9-16.9) g/dL Hct 44.4 (37.5-50.1) % Plt Count 211 (140-400) K/mcL Neutrophils # 3.0 (1.6-8.9) K/mcL BMP 06/02/17 10:48 Sodium 140 Potassium 4.2 Chloride 106 Carbon Dioxide 27 BUN 16 Creatinine 1.16 Glucose 98 Calcium 9.3 - ABG Interpretation ABG results: PT/INR, D-dimer PT 12.3 Seconds (9.4-12.1) H 05/31/17 16:29 - Impressions Impressions Cervical Spine X-Ray 06/02/17 11:14 IMPRESSION: Chronic degenerative changes predominantly at C5-6 D/ / Jann Kuhn MD / Jann Kuhn MD Interpreting Provider: Jann Kuhn MD Consult Discharge Plan - Plan Referrals: Heather Kay MD [Primary Care Provider] - 06/13/17 11:45 am (Dr. Oviedo has switch to [facility]. The phone number is [phone]. The office is located at [address] [place] [address]. )
[2017-06-02] MEDS: Apixaban 5 MG TABLET PO SCH (21:26)
[2017-06-03] MEDS: Gabapentin 300 MG CAPSULE PO SCH (09:37)
[2017-06-03] MEDS: Apixaban 5 MG TABLET PO SCH (09:37)
[2017-06-03] MEDS: Cetirizine HCl 5 MG/5 ML UDC PO SCH (09:37)
--- NOTE | 2017-06-03 13:51 | Discharge Summary ---
- NOTES TO OUTPATIENT PROVIDER Notes to Outpatient Provider: Recent to follow-up with hematology oncology for malignancy workup Date of Encounter: 06/03/17 Time of Encounter: 11:00 - Discharge Diagnosis (1) Pulmonary embolism Priority: Primary Status: Acute Qualifiers: Pulmonary embolism type: other Chronicity: acute Acute cor pulmonale presence: without acute cor pulmonale Qualified Code(s): I26.99 - Other pulmonary embolism without acute cor pulmonale (2) Hemangioma Priority: Secondary Status: Acute Hospital course: Patient is a 66-year-old male with past medical history significant for ANNABELLE, panic disorder, history of DVT and superficial venous thrombosis of the lower extremity, and reported past intracranial hemangioma currently being managed by Dr. Lo in [place] who presented to [facility] on 05/31/2017 after outpatient CTA found multiple pulmonary emboli within his bilateral lungs. Patient reported of a two-week history of shortness of breath, worsened by exertion with associated cough during inhalation and fatigue. Patient does report a history of a DVT approximately 20 years ago. In 2016, patient had a superficial venous thrombosis in his lower extremity. He denies any history of anticoagulation. Patient does state that he was diagnosed with a hemangioma in his brain in 2012 by MRI by a neurologist in [place]. He denies any family history of DVTs or hypercoagulopathy. He does report that both parents are secondary to malignancy. Patient was admitted to the medical surgical floor for management of pulmonary embolism. During patients hospital stay, he remained hemodynamically stable and was able to be weaned off supplemental oxygenation. Hematology oncology was consulted with recommendations of OAC for total 6 months. Patient will be discharged to continue Eliquis daily and to follow-up with hematology oncology for malignancy workup. - Time Spent with Patient Total time spent providing and/or coordinating discharge services: Less than 30 minutes - Discharge Medications Prescriptions: Apixaban [Eliquis] 10 mg PO BID #28 tablet Apixaban [Eliquis] 5 mg PO BID #60 tablet Home Medications: Gabapentin [Neurontin] 600 mg PO BID 05/31/17 [History] Apixaban [Eliquis] 5 mg PO BID #60 tablet 06/03/17 [Rx] Apixaban [Eliquis] 10 mg PO BID #28 tablet 06/03/17 [Rx] Allergies/Adverse Reactions: 3 Allergy/AdvReac Type Severity Reaction Status Date / Time No Known Allergies Allergy Verified 05/31/17 18:40 Date of admission: 06/01/17 05:01 Primary care physician: Heather Meyers Consults: 06/01/17 15:16 Consult to [employer]urt[employer] Analyst [CONS] Routine Reason for SW Consult: Good afternoon, Can you please help to check insurance coverage for Eliquis 10 mg twice daily for 7 days followed by 5 mg twice daily. Thank you! Sarah - Constitutional Vitals: Temp Pulse Resp BP Pulse Ox 97.7 F 60 14 109/61 96 06/03/17 12:25 06/03/17 12:25 06/03/17 12:25 06/03/17 12:25 06/03/17 12:25 General appearance: Present: cooperative, A&O X 3, pleasant, no acute distress, answers questions appropriately - Respiratory Respiratory exam: Present: CTAB. Absent: accessory muscle use, rales, rhonchi, wheezes - Patient Status Disposition: Home, Self-Care Condition: Good - Discharge Instructions Follow Up With: Heather Kay MD [Primary Care Provider] - 06/13/17 11:45 am (Dr. Oviedo has switch to [facility]. The phone number is [phone]. The office is located at [address] [place] [address]. )
[2017-06-03 15:27] VITALS: BP 118/75
--- NOTE | 2017-06-03 17:11 | Electrocardiograph Report ---
[place] [id number] Test Date: 2017-05-31 Pat Name: Anthony Germain Department: 102 Room: [facility] Gender: M Mobile Nurse: Msc : [id number] Requested By: Kiko Katz Order Number: [id number] Reading MD: Heather Nath Measurements Intervals [place] Rate: 61 P: 62 MD: 175 QRS: 6 QRSD: 94 T: -21 QT: 435 QTc: 439 Interpretive Statements SINUS RHYTHM WITH MARKED SINUS ARRHYTHMIA MODERATE T-WAVE ABNORMALITY, CONSIDER ANTERIOR ISCHEMIA [-0.1+ mV T WAVE IN V3/V4] Electronically Signed On 06-03-2017 17:09:28 EDT by Heather Nath
[2017-06-03 17:44] LABS: APTT (LE Anticoag) 82 sec (32-48); Diluted Russell Viper Venom 31 sec (33-44); LE APTT D Heparin Neutralized 42 sec (32-48); LE Coag Reptilase Time 18.5 sec (<=21.9); PT (LE-Anticoag) 14.4 sec (12.0-15.5)
[2017-06-06 08:25] LABS: FACV Specimen WHOLE BLOOD
[2017-06-06 08:29] LABS: Prothrombin G20210A Specimen WHOLE BLOOD
[2017-06-06 09:52] LABS: Fac V Leiden R506Q Mut Result NEGATIVE
[2017-06-06 09:53] LABS: Prothrombin G20210A Mut Result NEGATIVE
== END 2017-06-03 17:00 | disposition home or self-care (01) | DRG 176 ==
LOC: EMEROO 16:12 → 2SOUTHHOLD 16:12 → SUATTDRO 06-01 05:01 → 3NENU 06-01 20:12
PROVIDERS: ADMIT Internal Medicine Cardiovascular Disease; ATTEND Hospitalist